=== PATIENT | female | born 1970 | race African-American/Black ===

== ENCOUNTER 2018-02-22 10:46 | Emergency (ER) | payer MEDICAID ==
[~2018-02-22] VITALS: Ht 162.6 cm; Wt 86.0 kg
[2018-02-22 13:43] LABS: BASOPHILS % 0.3 % (0.0-2.0); EOSINOPHILS % 1.1 % (0.0-5.0); HEMATOCRIT. 31.1 % (36.0-48.0); HEMOGLOBIN. 9.5 g/dL (12.0-16.0); LYMPHOCYTES % 9.6 % (20.0-50.0); MEAN CORPUSCULAR HEMOGLOBIN 24.1 pg (28.0-32.0); MEAN CORPUSCULAR VOLUME 78.8 fL (81.0-99.0); MONOCYTES % 9.6 % (2.0-8.0); NEUTROPHILS % 79.4 % (40.0-76.0); PLATELET 485 x1000/uL (130-400); RED BLOOD CELL COUNT 3.95 mill/uL (4.2-5.4); RED CELL DISTRIBUTION WIDTH 19.1 % (11.6-14.6)
[2018-02-22] MEDS ORDERED: IBUPROFEN 800MG TABLET PO ONE (13:45)
[2018-02-22 13:50] LABS: CHLORIDE 106 mEq/L (98-107)
[2018-02-22] MEDS ORDERED: IOHEXOL-350 100 ML BOTTLE ONE (16:39)
[2018-02-22 17:14] VITALS: BP 143/97
== END 2018-02-22 17:22 | disposition home or self-care (01) ==
LOC: ER 13:07
DX: J18.9 Pneumonia, unspecified organism (principal); M94.0 Chondrocostal junction syndrome [Tietze]; D64.9 Anemia, unspecified
CPT/HCPCS: 36415; 71045; 71275; 80053; 83880; 84484; 85025; 85379; 93005; 99285; Q9967; Z7610

== ENCOUNTER 2018-03-08 15:40 | Emergency (ER) | payer MEDICAID ==
[~2018-03-08] VITALS: Ht 162.6 cm; Wt 86.0 kg
[2018-03-08] MEDS ORDERED: HYDROCODONE/ACETAMINOPHEN 5/325MG TABLET PO ONE (18:00)
[2018-03-08] MEDS ORDERED: ONDANSETRON 4MG ODT PO ONE (18:00)
[2018-03-08 18:33] VITALS: BP 120/78
== END 2018-03-08 19:00 | disposition home or self-care (01) ==
LOC: ER 15:40
DX: S22.31XA Fracture of one rib, right side, initial encounter for closed fracture (principal); X58.XXXA Exposure to other specified factors, initial encounter; Y93.9 Activity, unspecified; Y92.9 Unspecified place or not applicable; R03.0 Elevated blood-pressure reading, without diagnosis of hypertension; F12.90 Cannabis use, unspecified, uncomplicated
CPT/HCPCS: 71101; 99284; Q0162

== ENCOUNTER 2020-08-03 11:59 | Emergency (ER) | payer MEDICAID ==
[~2020-08-03] VITALS: Ht 162.6 cm; Wt 83.0 kg
[2020-08-03] MEDS: ACETAMINOPHEN 325MG TABLET PO ONE (13:50)
[2020-08-03 13:51] VITALS: BP 133/98
[2020-08-03] MEDS: IBUPROFEN 400MG TABLET PO ONE (13:51)
[2020-08-03] MEDS ORDERED: IBUP-2028 MT (13:52)
[2020-08-03] MEDS ORDERED: TOPUD MT (13:52)
== END 2020-08-03 14:00 | disposition home or self-care (01) ==
LOC: ER 11:59
DX: M54.9 Dorsalgia, unspecified (principal); R07.81 Pleurodynia; F12.10 Cannabis abuse, uncomplicated; Z88.0 Allergy status to penicillin; Z98.51 Tubal ligation status
CPT/HCPCS: 99283

== ENCOUNTER 2022-03-14 06:46 | Emergency (ER) | payer SELFPAY ==
[~2022-03-14] VITALS: Ht 162.6 cm; Wt 82.0 kg
[~2022-03-14 06:46] MED LIST: IBUP-2028 MT; TOPUD MT
[2022-03-14 06:55] VITALS: BP 152/105
[2022-03-14] MEDS ORDERED: HYDR25SU37 RC (08:43)
== END 2022-03-14 08:51 | disposition home or self-care (01) ==
LOC: ER 06:46
DX: K64.4 Residual hemorrhoidal skin tags (principal); K62.5 Hemorrhage of anus and rectum; I10 Essential (primary) hypertension; Z98.890 Other specified postprocedural states; Z88.0 Allergy status to penicillin; F12.10 Cannabis abuse, uncomplicated
CPT/HCPCS: 99283

== ENCOUNTER 2022-03-31 14:53 | Emergency (ER) | payer SELFPAY ==
[~2022-03-31] VITALS: Ht 167.6 cm; Wt 80.0 kg
[~2022-03-31 14:53] MED LIST changes: +HYDR25SU37 RC
[2022-03-31 14:58] VITALS: BP 187/127
[2022-03-31 16:38] LABS: HEMATOCRIT. 39.1 % (36.0-48.0); HEMOGLOBIN. 12.9 g/dL (12.0-16.0); MEAN CORPUSCULAR HEMOGLOBIN 31.7 pg (28.0-32.0); MEAN CORPUSCULAR VOLUME 96.1 fL (81.0-99.0); MEAN PLATELET VOLUME 7.8 fl (7.4-10.4); PLATELET 241 x1000/uL (130-400); RED BLOOD CELL COUNT 4.07 mill/uL (4.2-5.4); RED CELL DISTRIBUTION WIDTH 15.2 % (11.6-14.6)
[2022-03-31 16:47] LABS: CHLORIDE 107 mEq/L (98-107)
[2022-04-01 00:15] LABS: PLATELET ESTIMATE NORMAL
== END 2022-03-31 21:39 | disposition home or self-care (01) ==
LOC: ER 14:53
DX: R07.89 Other chest pain (principal); R03.0 Elevated blood-pressure reading, without diagnosis of hypertension; I44.4 Left anterior fascicular block; R00.0 Tachycardia, unspecified
CPT/HCPCS: 36415; 71045; 80053; 83880; 84484; 85025; 93005; 99285

== ENCOUNTER 2022-05-11 10:07 | Emergency (ER) | payer OTHER ==
[~2022-05-11] VITALS: Ht 167.6 cm; Wt 82.0 kg
[2022-05-11] MEDS ORDERED: IBUP-2029 PO (11:05)
[2022-05-11 13:20] VITALS: BP 126/75
== END 2022-05-11 13:21 | disposition home or self-care (01) ==
LOC: ER 10:07
DX: M79.645 Pain in left finger(s) (principal); F12.10 Cannabis abuse, uncomplicated; Z88.0 Allergy status to penicillin; Z98.51 Tubal ligation status
CPT/HCPCS: 73140; 99283

== ENCOUNTER 2022-05-16 12:51 | Emergency (ER) | payer OTHER ==
[~2022-05-16] VITALS: Ht 162.6 cm; Wt 79.0 kg
[~2022-05-16 12:51] MED LIST changes: +IBUP-2029 PO
[2022-05-16] MEDS ORDERED: HYDROCODONE/ACETAMINOPHEN 5/325MG TABLET PO ONE (13:45)
[2022-05-16 16:01] LABS: HEMATOCRIT. 40.9 % (36.0-48.0); HEMOGLOBIN. 13.6 g/dL (12.0-16.0); MEAN CORPUSCULAR HEMOGLOBIN 30.6 pg (28.0-32.0); MEAN CORPUSCULAR VOLUME 91.6 fL (81.0-99.0); MEAN PLATELET VOLUME 7.9 fl (7.4-10.4); PLATELET 259 x1000/uL (130-400); RED BLOOD CELL COUNT 4.46 mill/uL (4.2-5.4); RED CELL DISTRIBUTION WIDTH 14.1 % (11.6-14.6)
[2022-05-16 16:12] LABS: CHLORIDE 106 mEq/L (98-107)
[2022-05-16] MEDS ORDERED: T3 PO (17:34)
[2022-05-16 18:00] VITALS: BP 149/106
[2022-05-16 18:56] LABS: PLATELET ESTIMATE NORMAL
== END 2022-05-16 18:00 | disposition home or self-care (01) ==
LOC: ER 12:51
DX: M79.642 Pain in left hand (principal); F12.10 Cannabis abuse, uncomplicated; Z98.51 Tubal ligation status; Z79.899 Other long term (current) drug therapy; Z88.0 Allergy status to penicillin
CPT/HCPCS: 36415; 73130; 80048; 85025; 86038; 86430; 99284

== ENCOUNTER 2022-08-04 14:42 | Emergency (ER) | payer OTHER ==
[~2022-08-04] VITALS: Ht 162.6 cm; Wt 90.0 kg
[~2022-08-04 14:42] MED LIST changes: +T3 PO
[2022-08-04 14:57] VITALS: BP 144/103
[2022-08-04] MEDS ORDERED: ACETAMINOPHEN 325MG TABLET PO ONE (20:15)
== END 2022-08-04 20:50 | disposition home or self-care (01) ==
LOC: ER 14:42
DX: S69.81XA Other specified injuries of right wrist, hand and finger(s), initial encounter (principal); M19.031 Primary osteoarthritis, right wrist; X58.XXXA Exposure to other specified factors, initial encounter; Y93.89 Activity, other specified; Y92.89 Other specified places as the place of occurrence of the external cause
CPT/HCPCS: 29125; 73110; 99283

== ENCOUNTER 2023-10-25 05:48 | Inpatient (IN) | payer OTHER ==
[~2023-10-25] VITALS: Ht 162.6 cm; Wt 68.3 kg
[2023-10-25 05:53] VITALS: O2SAT 98
[2023-10-25] MEDS ORDERED: ONDANSETRON HCL 4MG/2ML INJ IV ONE (06:30)
[2023-10-25] MEDS ORDERED: MORPHINE SULFATE 4 MG/ML INJ (FOR IV/IM USE) IV ONE (06:30)
[2023-10-25] MEDS ORDERED: MAGNESIUM/ALUMINUM HYDROXIDE/SIMETHICONE 30ML UDC PO ONE (06:30)
[2023-10-25 06:40] LABS: BASOPHILS % 0.4 % (0.0-2.0); EOSINOPHILS % 1.8 % (0.0-5.0); HEMATOCRIT. 50.8 % (36.0-48.0); HEMOGLOBIN. 16.9 g/dL (12.0-16.0); LYMPHOCYTES % 16.2 % (20.0-50.0); MEAN CORPUSCULAR HEMOGLOBIN 31.4 pg (28.0-32.0); MEAN CORPUSCULAR HGB CONC 33.3 g/dL (31.0-37.0); MEAN CORPUSCULAR VOLUME 94.3 fL (81.0-99.0); MEAN PLATELET VOLUME 8.2 fl (7.4-10.4); NEUTROPHILS % 72.6 % (40.0-76.0); PLATELET 255 x1000/uL (130-400); RED BLOOD CELL COUNT 5.39 mill/uL (4.2-5.4); RED CELL DISTRIBUTION WIDTH 14.6 % (11.6-14.6); WHITE BLOOD COUNT 7.7 x1000/uL (4.5-11.0)
[2023-10-25 06:49] LABS: CHLORIDE 111 mEq/L (98-107); POTASSIUM 3.8 mEq/L (3.5-5.1); SODIUM 131 mEq/L (136-145)
[2023-10-25 06:50] LABS: CARBON DIOXIDE 13 mEq/L (21-32)
[2023-10-25 06:55] LABS: CREATININE 1.2 mg/dL (0.6-1.0); GLUCOSE 110 mg/dL (70-105)
[2023-10-25 06:56] LABS: TROPONIN I HIGH SENSITIVITY 9 ng/L (3.0-34); UREA NITROGEN BLOOD 23 mg/dL (9-23)
[2023-10-25 06:57] LABS: ALANINE AMINOTRANSFERASE 46 IU/L (10-49); ALBUMIN 4.3 g/dL (3.2-4.8); ASPARTATE AMINOTRANSFERASE 26 IU/L (<34); BILIRUBIN DIRECT 0.1 mg/dL (<=3.0)
[2023-10-25 06:58] LABS: BILIRUBIN TOTAL 0.3 mg/dL (0.1-1.0); PROTEIN TOTAL 7.4 g/dL (6.0-8.3)
[2023-10-25] MEDS: SODIUM CHLORIDE 0.9% 1,000 ML IV ONE (08:18)
[2023-10-25] MEDS: DICYCLOMINE HCL 10MG CAPSULE PO ONE (08:19)
[2023-10-25] MEDS: SODIUM CHLORIDE 0.9% 500 ML IV ONE (08:19)
[2023-10-25] MEDS: MORPHINE SULFATE 4 MG/ML INJ (FOR IV/IM USE) IV NR (08:29)
[2023-10-25] MEDS: ONDANSETRON HCL 4MG/2ML INJ IV NR (08:29)
[2023-10-25] MEDS: MAGNESIUM/ALUMINUM HYDROXIDE/SIMETHICONE 30ML UDC PO NR (08:30)
[2023-10-25 10:09] LABS: CLARITY URINE CLOUDY (CLEAR); COLOR URINE YELLOW (YELLOW); GLUCOSE URINE NEGATIVE (NEGATIVE); KETONES URINE 1+ (NEGATIVE); LEUKOCYTE ESTERASE URINE NEGATIVE (NEGATIVE); NITRITE URINE NEGATIVE (NEGATIVE); OCCULT BLOOD URINE 2+ (NEGATIVE); PH URINE 5.5 (4.5-8.0); PROTEIN URINE 1+ (NEGATIVE); SPECIFIC GRAVITY URINE 1.056 (1.005-1.030); UROBILINOGEN URINE 0.2 E.U./dL (0.2-1.0)
[2023-10-25 10:18] LABS: BACTERIA URINE 4+; HYALINE CASTS URINE 0-5 /lpf; SQUAMOUS EPITHELIAL CELL URINE 3+ /lpf (RARE/1+); YEAST URINE NONE SEEN
[2023-10-25] MEDS ORDERED: NITR100C MT (10:23)
[2023-10-25] MEDS ORDERED: ONDA4TAB50 MT (10:23)
[2023-10-25 10:32] LABS: TROPONIN I HIGH SENSITIVITY < 4 ng/L (3.0-34)
[2023-10-25 11:43] LABS: TROPONIN I HIGH SENSITIVITY 8 ng/L (3.0-34)
[2023-10-25] MEDS ORDERED: CLONIDINE 0.1MG TABLET PO PRN (13:15)
[2023-10-25] MEDS ORDERED: HYDROCODONE/ACETAMINOPHEN 5/325MG TABLET PO PRN (13:15)
[2023-10-25] MEDS ORDERED: NITROGLYCERIN 0.4MG TABLET SL SL PRN (13:15)
[2023-10-25] MEDS ORDERED: IPRATROPIUM/ALBUTEROL 0.5-3(2.5)MG/3ML NEB HHN PRN (13:15)
[2023-10-25] MEDS ORDERED: ONDANSETRON HCL 4MG/2ML INJ IV PRN (13:15)
[2023-10-25] MEDS ORDERED: NA PHOS,M-B/NA PHOS,DI-BA ENEMA 118ML PR PRN (13:15)
[2023-10-25] MEDS ORDERED: MAGNESIUM/ALUMINUM HYDROXIDE/SIMETHICONE 30ML UDC PO PRN (13:15)
[2023-10-25] MEDS ORDERED: DOCUSATE SODIUM 100MG CAPSULE PO PRN (13:15)
[2023-10-25] MEDS ORDERED: GUAIFENESIN 200MG/10ML SUGAR FREE UDC PO PRN (13:15)
[2023-10-25] MEDS ORDERED: ACETAMINOPHEN 325MG TABLET PO PRN (13:15)
[2023-10-25] MEDS ORDERED: NALOXONE HCL 0.4MG/ML VIAL IV PRN (13:15)
[2023-10-25] MEDS ORDERED: IOHEXOL-300 100 ML BOTTLE ONE (13:17)
[2023-10-25 16:38] VITALS: BP 106/71; PULSE 104; RESP 18; TEMP 96.6
[2023-10-25 16:46] LABS: TROPONIN I HIGH SENSITIVITY 8 ng/L (3.0-34)
[2023-10-25 16:47] LABS: CREATINE KINASE 136 IU/L (34-145)
[2023-10-25 18:41] LABS: CLARITY URINE CLEAR (CLEAR); COLOR URINE YELLOW (YELLOW); GLUCOSE URINE NEGATIVE (NEGATIVE); KETONES URINE 1+ (NEGATIVE); LEUKOCYTE ESTERASE URINE NEGATIVE (NEGATIVE); NITRITE URINE NEGATIVE (NEGATIVE); OCCULT BLOOD URINE 2+ (NEGATIVE); PROTEIN URINE 1+ (NEGATIVE); UROBILINOGEN URINE 0.2 E.U./dL (0.2-1.0)
[2023-10-25 18:55] LABS: *AMPHETAMINES SCREEN URINE NEGATIVE (NEGATIVE); *BARBITURATES SCREEN URINE NEGATIVE (NEGATIVE); *BENZODIAZEPINES SCREEN URINE NEGATIVE (NEGATIVE); *COCAINE SCREEN URINE NEGATIVE (NEGATIVE); CANNABINOID URINE SCREEN PRESUMPTIVE POSITIVE (NEGATIVE); ECSTASY MDMA SCREEN URINE NEGATIVE (NEGATIVE); METHADONE URINE SCREEN NEGATIVE (NEGATIVE); OPIATES URINE SCREEN PRESUMPTIVE POSITIVE (NEGATIVE); PHENCYCLIDINE URINE SCREEN NEGATIVE (NEGATIVE)
[2023-10-25 19:11] LABS: BACTERIA URINE TRACE; RBC URINE 0-2 /hpf (0-2); SQUAMOUS EPITHELIAL CELL URINE FEW /lpf (RARE/1+); WBC URINE NONE SEEN /hpf (0-2)
[2023-10-25] MEDS: ENOXAPARIN 40MG/0.4ML SYR SUBCUT SCH (20:58)
[2023-10-25] MEDS: SODIUM CHLORIDE 0.9% 1,000 ML IV SCH (20:58)
[2023-10-25] MEDS: ACETAMINOPHEN 325MG TABLET PO PRN (23:17)
[2023-10-25 23:48] LABS: TROPONIN I HIGH SENSITIVITY 6 ng/L (3.0-34)
[2023-10-25 23:49] LABS: CREATINE KINASE 120 IU/L (34-145)
[2023-10-26] VITALS: BP 108/75; PULSE 103; RESP 18; TEMP 97.3
[2023-10-26 04:00] VITALS: BP 121/89; PULSE 108; RESP 18; TEMP 97.2
[2023-10-26] MEDS: PANTOPRAZOLE 40MG DR TABLET PO SCH (06:02)
[2023-10-26 06:13] LABS: CHLORIDE 108 mEq/L (98-107); POTASSIUM 3.6 mEq/L (3.5-5.1); SODIUM 132 mEq/L (136-145)
[2023-10-26 06:14] LABS: CARBON DIOXIDE 17 mEq/L (21-32)
[2023-10-26 06:15] LABS: CALCIUM 8.9 mg/dL (8.7-10.4)
[2023-10-26 06:19] LABS: CREATININE 0.9 mg/dL (0.6-1.0); GLUCOSE 88 mg/dL (70-105); UREA NITROGEN BLOOD 20 mg/dL (9-23)
[2023-10-26 06:20] LABS: BASOPHILS % 0.4 % (0.0-2.0); EOSINOPHILS % 1.2 % (0.0-5.0); HEMATOCRIT. 49.4 % (36.0-48.0); HEMOGLOBIN. 16.1 g/dL (12.0-16.0); LYMPHOCYTES % 16.9 % (20.0-50.0); MEAN CORPUSCULAR HEMOGLOBIN 30.8 pg (28.0-32.0); MEAN CORPUSCULAR HGB CONC 32.7 g/dL (31.0-37.0); MEAN CORPUSCULAR VOLUME 94.4 fL (81.0-99.0); MONOCYTES % 11.2 % (2.0-8.0); NEUTROPHILS % 70.3 % (40.0-76.0); PLATELET 249 x1000/uL (130-400); RED BLOOD CELL COUNT 5.24 mill/uL (4.2-5.4); RED CELL DISTRIBUTION WIDTH 14.2 % (11.6-14.6); WHITE BLOOD COUNT 6.8 x1000/uL (4.5-11.0)
[2023-10-26 06:23] LABS: T4 FREE 0.99 ng/dL (0.89-1.76); THYROID STIMULATING HORMONE 1.89 uIU/mL (0.55-4.78)
[2023-10-26 08:00] VITALS: BP 107/78; PULSE 66; RESP 16; TEMP 97
[2023-10-26] MEDS: ASPIRIN 81MG TABLET PO SCH (08:14)
[2023-10-26 09:22] LABS: CREATININE URINE RANDOM 81.7 mg/dL
[2023-10-26 12:00] VITALS: BP 113/69; PULSE 63; RESP 16; TEMP 98.5
[2023-10-26 16:00] VITALS: BP 118/84; PULSE 94; TEMP 97.7
[2023-10-26 20:00] VITALS: BP 119/88; PULSE 95; RESP 19; TEMP 97.8
[2023-10-27] VITALS: BP 102/68; PULSE 85; RESP 19; TEMP 97.9
[2023-10-27 04:00] VITALS: BP 108/81; PULSE 86; RESP 18; TEMP 98.3
[2023-10-27 08:00] VITALS: BP 113/77; PULSE 73; RESP 15; TEMP 97.3
[2023-10-27 08:34] LABS: HEMATOCRIT 41.2 % (36.0-48.0); HEMOGLOBIN 13.4 g/dL (12.0-16.0); MEAN CORPUSCULAR HEMOGLOBIN 30.6 pg (28.0-32.0); MEAN CORPUSCULAR HGB CONC 32.4 g/dL (31.0-37.0); MEAN CORPUSCULAR VOLUME 94.3 fL (81.0-99.0); PLATELET 200 x1000/uL (130-400); RED BLOOD CELL COUNT 4.37 mill/uL (4.2-5.4); RED CELL DISTRIBUTION WIDTH 14.4 % (11.6-14.6); WHITE BLOOD COUNT 5.6 x1000/uL (4.5-11.0)
[2023-10-27 08:50] LABS: CARBON DIOXIDE 21 mEq/L (21-32); CHLORIDE 111 mEq/L (98-107); POTASSIUM 3.4 mEq/L (3.5-5.1); SODIUM 136 mEq/L (136-145)
[2023-10-27 08:51] LABS: CALCIUM 8.5 mg/dL (8.7-10.4)
[2023-10-27 08:55] LABS: CREATININE 0.7 mg/dL (0.6-1.0)
[2023-10-27 08:56] LABS: UREA NITROGEN BLOOD 14 mg/dL (9-23)
[2023-10-27 08:58] LABS: PHOSPHORUS 2.3 mg/dL (2.5-4.9)
[2023-10-27 09:04] LABS: GLUCOSE 46 mg/dL (70-105)
[2023-10-27] MEDS: FAMOTIDINE 20MG TABLET PO SCH (09:24)
[2023-10-27] MEDS ORDERED: POTASSIUM PHOSPHATE 20 MMOL in DEXT 5% WATER 243.3333 ML IV NR (11:00)
[2023-10-27 12:00] VITALS: BP 118/79; PULSE 79; RESP 17; TEMP 98.3
[2023-10-27] MEDS: POTASSIUM CHLORIDE 20MEQ TABLET SR PO NR (14:19)
[2023-10-27 16:00] VITALS: BP 131/89; PULSE 84; RESP 17; TEMP 97.6
== END 2023-10-27 15:40 | disposition home or self-care (01) | DRG 249 ==
LOC: ER 05:48 → EDBEDREQ 12:05 → 7EST 15:16
PROVIDERS: ADMIT Preventive Medicine Clinical Informatics; ATTEND Preventive Medicine Clinical Informatics
DX: E86.0 Dehydration (principal); K52.9 Noninfective gastroenteritis and colitis, unspecified; N17.0 Acute kidney failure with tubular necrosis; E87.1 Hypo-osmolality and hyponatremia; R00.0 Tachycardia, unspecified; E87.20 Acidosis, unspecified; F17.200 Nicotine dependence, unspecified, uncomplicated; I25.9 Chronic ischemic heart disease, unspecified; I10 Essential (primary) hypertension; Z88.0 Allergy status to penicillin; Z98.51 Tubal ligation status
CPT/HCPCS: 36415; 71045; 74177; 76705; 80048; 80076; 80305; 81003; 82436; 82550; 82570; 82705; 83605; 83735; 83930; 83935; 84100; 84145; 84300; 84439; 84443; 84484; 85025; 85027; 85379; 87015; 87045; 87177; 87209; 87427; 87449; 89055; 93005; 93306; 93970; 99285; J1650; J2270; J2405; J3490; J7030; J7040; J7060; Q9967

== ENCOUNTER 2023-11-01 15:26 | Inpatient (IN) | payer OTHER ==
[~2023-11-01] VITALS: Ht 162.6 cm; Wt 68.9 kg
[~2023-11-01 15:26] MED LIST changes: +ONDA4TAB50 MT
[2023-11-01 16:43] LABS: CLARITY URINE CLOUDY (CLEAR); COLOR URINE DARK YELLOW (YELLOW); GLUCOSE URINE NEGATIVE (NEGATIVE); KETONES URINE 1+ (NEGATIVE); LEUKOCYTE ESTERASE URINE NEGATIVE (NEGATIVE); NITRITE URINE NEGATIVE (NEGATIVE); OCCULT BLOOD URINE NEGATIVE (NEGATIVE); PH URINE 5.5 (4.5-8.0); PROTEIN URINE 2+ (NEGATIVE); SPECIFIC GRAVITY URINE 1.024 (1.005-1.030)
[2023-11-01 16:53] LABS: *AMPHETAMINES SCREEN URINE NEGATIVE (NEGATIVE)
[2023-11-01 16:54] LABS: *BARBITURATES SCREEN URINE NEGATIVE (NEGATIVE); *COCAINE SCREEN URINE NEGATIVE (NEGATIVE); ECSTASY MDMA SCREEN URINE NEGATIVE (NEGATIVE); METHADONE URINE SCREEN NEGATIVE (NEGATIVE); OPIATES URINE SCREEN NEGATIVE (NEGATIVE); PHENCYCLIDINE URINE SCREEN NEGATIVE (NEGATIVE)
[2023-11-01 16:58] LABS: BACTERIA URINE TRACE; RBC URINE NONE SEEN /hpf (0-2); SQUAMOUS EPITHELIAL CELL URINE FEW /lpf (RARE/1+); WBC URINE 0-2 /hpf (0-2)
[2023-11-01 16:58] LABS: BASOPHILS % 0.2 % (0.0-2.0); EOSINOPHILS % 0.8 % (0.0-5.0); HEMATOCRIT. 53.3 % (36.0-48.0); HEMOGLOBIN. 17.6 g/dL (12.0-16.0); LYMPHOCYTES % 12.5 % (20.0-50.0); MEAN CORPUSCULAR HEMOGLOBIN 31.1 pg (28.0-32.0); MEAN CORPUSCULAR VOLUME 94.1 fL (81.0-99.0); MEAN PLATELET VOLUME 8.8 fl (7.4-10.4); MONOCYTES % 8.6 % (2.0-8.0); NEUTROPHILS % 77.9 % (40.0-76.0); PLATELET 271 x1000/uL (130-400); RED BLOOD CELL COUNT 5.66 mill/uL (4.2-5.4); RED CELL DISTRIBUTION WIDTH 14.6 % (11.6-14.6); WHITE BLOOD COUNT 8.7 x1000/uL (4.5-11.0)
[2023-11-01 16:59] LABS: HYALINE CASTS URINE 20-30 /lpf
[2023-11-01 17:06] LABS: CHLORIDE 101 mEq/L (98-107); POTASSIUM 3.9 mEq/L (3.5-5.1); SODIUM 130 mEq/L (136-145)
[2023-11-01 17:07] LABS: CALCIUM 9.8 mg/dL (8.7-10.4); CARBON DIOXIDE 16 mEq/L (21-32)
[2023-11-01 17:12] LABS: CREATININE 1.2 mg/dL (0.6-1.0); GLUCOSE 96 mg/dL (70-105); TROPONIN I HIGH SENSITIVITY 18 ng/L (3.0-34); UREA NITROGEN BLOOD 16 mg/dL (9-23)
[2023-11-01 21:22] LABS: TROPONIN I HIGH SENSITIVITY 18 ng/L (3.0-34)
[2023-11-01 23:29] LABS: TROPONIN I HIGH SENSITIVITY 17 ng/L (3.0-34)
[2023-11-02] MEDS ORDERED: NALOXONE HCL 0.4MG/ML VIAL IV PRN (02:30)
[2023-11-02] MEDS: HYDROCODONE/ACETAMINOPHEN 10/325MG TABLET PO PRN (02:57)
[2023-11-02] MEDS ORDERED: ACETAMINOPHEN 325MG TABLET PO PRN (10:30)
[2023-11-02 17:30] VITALS: BP 110/92; PULSE 119; RESP 18; TEMP 97.7
[2023-11-02 17:45] VITALS: BP 110/92; PULSE 59; RESP 18; TEMP 97.7
[2023-11-02] MEDS: KETOROLAC 30MG/ML VIAL IV PRN (18:34)
[2023-11-02 20:00] VITALS: BP 104/72; PULSE 96; RESP 18; TEMP 97.3
[2023-11-02 21:56] LABS: BASOPHILS % 0.2 % (0.0-2.0); EOSINOPHILS % 0.5 % (0.0-5.0); HEMATOCRIT. 45.4 % (36.0-48.0); LYMPHOCYTES % 8.6 % (20.0-50.0); MEAN CORPUSCULAR HEMOGLOBIN 31.3 pg (28.0-32.0); MEAN CORPUSCULAR VOLUME 94.8 fL (81.0-99.0); MEAN PLATELET VOLUME 8.5 fl (7.4-10.4); MONOCYTES % 9.9 % (2.0-8.0); NEUTROPHILS % 80.8 % (40.0-76.0); PLATELET 254 x1000/uL (130-400); RED BLOOD CELL COUNT 4.78 mill/uL (4.2-5.4); RED CELL DISTRIBUTION WIDTH 14.2 % (11.6-14.6)
[2023-11-02 22:13] LABS: CHLORIDE 104 mEq/L (98-107); POTASSIUM 3.7 mEq/L (3.5-5.1); SODIUM 132 mEq/L (136-145)
[2023-11-02 22:14] LABS: CARBON DIOXIDE 16 mEq/L (21-32)
[2023-11-02 22:19] LABS: CREATININE 0.9 mg/dL (0.6-1.0); GLUCOSE 80 mg/dL (70-105); UREA NITROGEN BLOOD 21 mg/dL (9-23)
[2023-11-03 00:07] VITALS: BP 104/73; PULSE 113; RESP 16; TEMP 97.5
[2023-11-03] MEDS: ONDANSETRON HCL 4MG/2ML INJ IV PRN (03:03)
[2023-11-03 04:00] VITALS: BP 102/77; PULSE 113; RESP 18; TEMP 97.3
[2023-11-03 08:00] VITALS: BP 101/78; PULSE 84; RESP 18; TEMP 97.6
[2023-11-03 08:29] LABS: HEMATOCRIT 47.5 % (36.0-48.0); HEMOGLOBIN 15.4 g/dL (12.0-16.0); MEAN CORPUSCULAR HEMOGLOBIN 30.4 pg (28.0-32.0); MEAN CORPUSCULAR HGB CONC 32.4 g/dL (31.0-37.0); PLATELET 269 x1000/uL (130-400); RED BLOOD CELL COUNT 5.05 mill/uL (4.2-5.4); RED CELL DISTRIBUTION WIDTH 14.4 % (11.6-14.6); WHITE BLOOD COUNT 8.4 x1000/uL (4.5-11.0)
[2023-11-03 08:36] LABS: CHLORIDE 105 mEq/L (98-107); POTASSIUM 3.9 mEq/L (3.5-5.1); SODIUM 131 mEq/L (136-145)
[2023-11-03 08:37] LABS: CALCIUM 8.9 mg/dL (8.7-10.4); CARBON DIOXIDE 16 mEq/L (21-32)
[2023-11-03 08:42] LABS: CREATININE 0.8 mg/dL (0.6-1.0); GLUCOSE 97 mg/dL (70-105); UREA NITROGEN BLOOD 28 mg/dL (9-23)
[2023-11-03 12:00] VITALS: BP 104/83; PULSE 83; RESP 18; TEMP 97.8
[2023-11-03 16:00] VITALS: BP 111/79; PULSE 85; RESP 18; TEMP 96.3
[2023-11-03] MEDS: SODIUM CHLORIDE 0.9% 1,000 ML IV SCH (16:15)
[2023-11-03] MEDS: SODIUM CHLORIDE 0.9% 500 ML IV ONE (16:17)
[2023-11-03 20:00] VITALS: BP 100/68; PULSE 116; RESP 16; TEMP 97.9
[2023-11-03 20:09] LABS: CLARITY URINE TURBID (CLEAR); COLOR URINE YELLOW (YELLOW); GLUCOSE URINE NEGATIVE (NEGATIVE); KETONES URINE 2+ (NEGATIVE); LEUKOCYTE ESTERASE URINE 2+ (NEGATIVE); NITRITE URINE NEGATIVE (NEGATIVE); OCCULT BLOOD URINE NEGATIVE (NEGATIVE); PH URINE 6.5 (4.5-8.0); PROTEIN URINE 2+ (NEGATIVE); SPECIFIC GRAVITY URINE 1.032 (1.005-1.030); UROBILINOGEN URINE 0.2 E.U./dL (0.2-1.0)
[2023-11-03] MEDS: METOCLOPRAMIDE HCL 10MG/2ML VIAL IV PRN (20:16)
[2023-11-03] MEDS: FAMOTIDINE 20MG TABLET PO SCH (20:16)
[2023-11-03 20:35] LABS: BACTERIA URINE 3+
[2023-11-03 20:37] LABS: AMORPHOUS SEDIMENT URINE 2+ /lpf; RBC URINE 0-2 /hpf (0-2); SQUAMOUS EPITHELIAL CELL URINE FEW /lpf (RARE/1+)
[2023-11-03 20:38] LABS: FINE GRANULAR CASTS URINE 0-5 /lpf
[2023-11-04] VITALS: BP 98/69; PULSE 103; RESP 16; TEMP 97.8
[2023-11-04 04:00] VITALS: BP 115/82; PULSE 99; RESP 18; TEMP 97.5
[2023-11-04 08:00] VITALS: BP 92/63; PULSE 103; RESP 18; TEMP 97
[2023-11-04 12:00] VITALS: BP 114/83; PULSE 110; RESP 20; TEMP 97.5
[2023-11-04 16:00] VITALS: BP 97/65; PULSE 106; RESP 18; TEMP 97.4
[2023-11-04] MEDS ORDERED: ONDA4TAB11 PO (17:09)
[2023-11-04 18:10] VITALS: BP 97/65; PULSE 106; TEMP 97.4; O2SAT 100
== END 2023-11-04 20:07 | disposition home or self-care (01) | DRG 249 ==
LOC: ER 15:29 → MICUSO 23:23 → 5WST 11-02 12:18 → 7WST 11-02 18:27
PROVIDERS: ADMIT Internal Medicine; ATTEND Internal Medicine
DX: K52.9 Noninfective gastroenteritis and colitis, unspecified (principal); N17.0 Acute kidney failure with tubular necrosis; E87.1 Hypo-osmolality and hyponatremia; R30.0 Dysuria; F12.20 Cannabis dependence, uncomplicated; I10 Essential (primary) hypertension; Z82.49 Family history of ischemic heart disease and other diseases of the circulatory system; Z88.0 Allergy status to penicillin; Z98.51 Tubal ligation status
CPT/HCPCS: 36415; 71045; 74176; 80048; 80305; 81003; 83880; 84145; 84484; 85025; 85027; 87015; 87045; 87177; 87209; 87427; 87449; 87493; 89055; 93005; 99285; J1885; J2405; J2765; J7030

== ENCOUNTER 2023-11-06 18:26 | Inpatient (IN) | payer OTHER ==
[~2023-11-06] VITALS: Ht 162.6 cm; Wt 71.7 kg
[~2023-11-06 18:26] MED LIST changes: +ONDA4TAB11 PO
[2023-11-06] MEDS: MAGNESIUM/ALUMINUM HYDROXIDE/SIMETHICONE 30ML UDC PO STA (20:17)
[2023-11-06] MEDS: ONDANSETRON HCL 4MG/2ML INJ IV STA (20:17)
[2023-11-06] MEDS: SODIUM CHLORIDE 0.9% 1,000 ML IV ONE (20:18)
[2023-11-06 20:29] LABS: BASOPHILS % 0.2 % (0.0-2.0); EOSINOPHILS % 0.3 % (0.0-5.0); HEMATOCRIT. 45.2 % (36.0-48.0); HEMOGLOBIN. 15.1 g/dL (12.0-16.0); MEAN CORPUSCULAR HEMOGLOBIN 31.5 pg (28.0-32.0); MEAN CORPUSCULAR HGB CONC 33.3 g/dL (31.0-37.0); MEAN CORPUSCULAR VOLUME 94.6 fL (81.0-99.0); MEAN PLATELET VOLUME 8.3 fl (7.4-10.4); MONOCYTES % 7.4 % (2.0-8.0); NEUTROPHILS % 84.1 % (40.0-76.0); PLATELET 290 x1000/uL (130-400); RED BLOOD CELL COUNT 4.78 mill/uL (4.2-5.4); RED CELL DISTRIBUTION WIDTH 14.6 % (11.6-14.6); WHITE BLOOD COUNT 7.2 x1000/uL (4.5-11.0)
[2023-11-06 20:35] LABS: CHLORIDE 106 mEq/L (98-107); POTASSIUM 3.8 mEq/L (3.5-5.1); SODIUM 132 mEq/L (136-145)
[2023-11-06 20:37] LABS: CALCIUM 9.2 mg/dL (8.7-10.4); CARBON DIOXIDE 16 mEq/L (21-32)
[2023-11-06 20:42] LABS: CREATININE 1.1 mg/dL (0.6-1.0); GLUCOSE 106 mg/dL (70-105); UREA NITROGEN BLOOD 20 mg/dL (9-23)
[2023-11-06 20:44] LABS: ALANINE AMINOTRANSFERASE 41 IU/L (10-49); ALBUMIN 3.5 g/dL (3.2-4.8); ASPARTATE AMINOTRANSFERASE 22 IU/L (<34); BILIRUBIN TOTAL 0.2 mg/dL (0.1-1.0); PROTEIN TOTAL 5.9 g/dL (6.0-8.3)
[2023-11-06 20:46] LABS: BILIRUBIN DIRECT < 0.1 mg/dL (<=3.0)
[2023-11-06] MEDS ORDERED: ACETAMINOPHEN 325MG TABLET PO PRN (22:00)
[2023-11-06] MEDS ORDERED: GUAIFENESIN 200MG/10ML SUGAR FREE UDC PO PRN (22:00)
[2023-11-06] MEDS ORDERED: ONDANSETRON HCL 4MG/2ML INJ IV PRN (22:00)
[2023-11-06] MEDS ORDERED: IPRATROPIUM/ALBUTEROL 0.5-3(2.5)MG/3ML NEB HHN PRN (22:00)
[2023-11-06] MEDS ORDERED: MORPHINE SULFATE 4 MG/ML INJ (FOR IV/IM USE) IV ONE (22:00)
[2023-11-06] MEDS ORDERED: LEVOFLOXACIN 750MG PREMIX 150 ML IV SCH (23:00)
[2023-11-06] MEDS ORDERED: HYDRALAZINE 20MG/ML VIAL IV PRN (23:00)
[2023-11-07] VITALS (29 sets, daily range): BP systolic 92–114; BP diastolic 42–77; PULSE 74–119; RESP 16–30; TEMP 96.8–98.5
[2023-11-07] MEDS: MORPHINE SULFATE 4 MG/ML INJ (FOR IV/IM USE) IV NR (00:10)
[2023-11-07] MEDS: DEXT 5%/0.9% NACL 1,000 ML IV SCH (00:21)
[2023-11-07 00:52] LABS: PHOSPHORUS 3.2 mg/dL (2.5-4.9); TROPONIN I HIGH SENSITIVITY 18 ng/L (3.0-34)
[2023-11-07 00:53] LABS: CREATINE KINASE 40 IU/L (34-145)
[2023-11-07] MEDS: ENOXAPARIN 40MG/0.4ML SYR SUBCUT SCH (04:03)
[2023-11-07] MEDS: VANCOMYCIN 1.5GM/250ML IV NR (04:04)
[2023-11-07] MEDS ORDERED: NALOXONE HCL 0.4MG/ML VIAL IV PRN ×2 (04:30→09:30)
[2023-11-07] MEDS ORDERED: MORPHINE SULFATE 2 MG/ML INJ (NOT FOR IM USE) IV PRN (04:30)
[2023-11-07] MEDS ORDERED: LIDOCAINE HCL/PF 1% 10 MG/ML 5ML VIAL ONE (07:18)
[2023-11-07] MEDS ORDERED: FENTANYL CITRATE/PF 50MCG/ML 2ML VIAL ONE ×2 (07:19→08:45)
[2023-11-07] MEDS ORDERED: ROCURONIUM BROMIDE 10MG/ML VIAL 5ML IV ONE (07:19)
[2023-11-07] MEDS ORDERED: PROPOFOL 200MG/20ML VIAL IV ONE (07:19)
[2023-11-07] MEDS ORDERED: MIDAZOLAM HCL 2 MG/2 ML VIAL ONE (07:20)
[2023-11-07 07:21] LABS: POTASSIUM 4.1 mEq/L (3.5-5.1)
[2023-11-07 07:22] LABS: CALCIUM 8.5 mg/dL (8.7-10.4)
[2023-11-07 07:44] LABS: CREATININE 1.9 mg/dL (0.6-1.0)
[2023-11-07 07:46] LABS: T4 FREE 1.28 ng/dL (0.89-1.76); THYROID STIMULATING HORMONE 0.58 uIU/mL (0.55-4.78)
[2023-11-07] MEDS ORDERED: ALBUMIN HUMAN 12.5GM/50ML (25%) IV ONE (07:52)
[2023-11-07] MEDS ORDERED: EPINEPHRINE 0.1MG/ML (1:10,000) 10ML SYR ONE (08:18)
[2023-11-07] MEDS ORDERED: ACETAMINOPHEN 1000MG/100ML IV NR (08:30)
[2023-11-07] MEDS ORDERED: ONDANSETRON HCL 4MG/2ML INJ IV PRN ×2 (08:30→09:30)
[2023-11-07] MEDS ORDERED: HYDROMORPHONE HCL/PF 2MG/ML INJ IV PRN (08:30)
[2023-11-07] MEDS ORDERED: SUGAMMADEX SODIUM 200 MG/2 ML VIAL IV NR (08:30)
[2023-11-07] MEDS ORDERED: SODIUM CHLORIDE 0.9% 1,000 ML IV ONE (09:00)
[2023-11-07] MEDS ORDERED: LEVOFLOXACIN 500MG PREMIX 100 ML IV NR (09:00)
[2023-11-07] MEDS ORDERED: FENTANYL CITRATE/PF 50MCG/ML 2ML VIAL IV PRN (09:00)
[2023-11-07] MEDS ORDERED: NALOXONE HCL 0.4MG/ML 1ML VIAL ONE (09:11)
[2023-11-07] MEDS ORDERED: FLUMAZENIL 0.1 MG/ML 5ML VIAL IV ONE (09:23)
[2023-11-07] MEDS ORDERED: DEXT 5%/0.45% NACL KCL 20MEQ/L 1,000 ML IV SCH (09:30)
[2023-11-07] MEDS ORDERED: LEVOFLOXACIN 500MG PREMIX 100 ML IV SCH (09:30)
[2023-11-07] MEDS: IPRATROPIUM/ALBUTEROL 0.5-3(2.5)MG/3ML NEB HHN NR (09:52)
[2023-11-07] MEDS: PHENYLEPHRINE 50MG/250ML PMX 250 ML IV PRN (10:00)
[2023-11-07] MEDS ORDERED: PHENYLEPHRINE 50MG/250ML PMX 250 ML IV PRN (10:00)
[2023-11-07] MEDS: FAMOTIDINE 20MG/2ML VIAL IV SCH (10:00)
[2023-11-07 10:01] LABS: BG BASE EXCESS -17.2 mmol/L (-2.0-2.0); BG DEOXYHEMOGLOBIN 1.7 % (0.0-5.0); BG FRACTION INSPIRED OXYGEN 100; BG HCO3 ACT 10.5 mmol/L (22.0-26.0); BG METHEMOGLOBIN 0.3 % (0.0-1.5); BG OXYGEN SATURATION 98.3 % (92.0-98.5); BG PCO2 31.5 mmHg (35.0-45.0); BG PH 7.142 (7.350-7.450); BG PO2 132.5 mmHg (75.0-100.0); BG SAMPLE SITE RIGHT BRACHIAL; BG TOTAL HEMOGLOBIN 11.8 g/dL (12.0-18.0); BG VENT MODE MASK - NRB
[2023-11-07] MEDS: SODIUM BICARBONATE 8.4% 50MEQ/50ML SYR IV NR (10:05)
[2023-11-07] MEDS ORDERED: NOREPINEPHRINE 8MG/250ML PMX 250 ML IV PRN ×2 (10:15→10:30)
[2023-11-07] MEDS: LACTATED RINGERS 1,000 ML IV ONE (10:36)
[2023-11-07] MEDS: LEVOFLOXACIN 500MG PREMIX 100 ML IV NR (15:00)
[2023-11-07] MEDS ORDERED: VANCOMYCIN 750MG/150ML (BAXTER) IV SCH (16:00)
[2023-11-07 16:16] LABS: HEMATOCRIT. 37.3 % (36.0-48.0); HEMOGLOBIN. 12.5 g/dL (12.0-16.0); MEAN CORPUSCULAR HEMOGLOBIN 31.4 pg (28.0-32.0); MEAN CORPUSCULAR HGB CONC 33.5 g/dL (31.0-37.0); MEAN CORPUSCULAR VOLUME 93.6 fL (81.0-99.0); PLATELET 256 x1000/uL (130-400); RED BLOOD CELL COUNT 3.99 mill/uL (4.2-5.4); RED CELL DISTRIBUTION WIDTH 14.5 % (11.6-14.6); WHITE BLOOD COUNT 10.2 x1000/uL (4.5-11.0)
[2023-11-07 16:21] LABS: DIFFERENTIAL COMMENT 1
[2023-11-07 16:44] LABS: PLATELET ESTIMATE NORMAL
[2023-11-07] MEDS: MORPHINE SULFATE 2 MG/ML INJ (NOT FOR IM USE) IV PRN (17:02)
[2023-11-07] MEDS ORDERED: FAMOTIDINE 20MG TABLET PO SCH (21:00)
[2023-11-07] MEDS: DEXT 5%/0.45% NACL KCL 20MEQ/L 1,000 ML IV SCH (21:01)
[2023-11-08] VITALS (91 sets, daily range): BP systolic 87–124; BP diastolic 57–92; PULSE 70–101; RESP 14–45; TEMP 96.8–98.5
[2023-11-08 05:38] LABS: HEMATOCRIT 35.9 % (36.0-48.0); HEMOGLOBIN 11.9 g/dL (12.0-16.0); MEAN CORPUSCULAR HEMOGLOBIN 31.2 pg (28.0-32.0); MEAN CORPUSCULAR HGB CONC 33.2 g/dL (31.0-37.0); MEAN CORPUSCULAR VOLUME 93.8 fL (81.0-99.0); PLATELET 271 x1000/uL (130-400); POTASSIUM 3.7 mEq/L (3.5-5.1); RED BLOOD CELL COUNT 3.82 mill/uL (4.2-5.4); RED CELL DISTRIBUTION WIDTH 14.6 % (11.6-14.6); WHITE BLOOD COUNT 17.7 x1000/uL (4.5-11.0)
[2023-11-08 05:40] LABS: CALCIUM 8.1 mg/dL (8.7-10.4)
[2023-11-08 05:46] LABS: CREATININE 2.9 mg/dL (0.6-1.0)
[2023-11-08] MEDS: LEVOFLOXACIN 250MG PREMIX 50 ML IV SCH (09:07)
[2023-11-08] MEDS: SODIUM CHLORIDE 0.9% 500 ML IV ONE (17:07)
[2023-11-08] MEDS: DEXT 5%/LACTATED RINGERS 1,000 ML IV SCH (17:08)
[2023-11-08] MEDS: CLINDAMYCIN 600MG PREMIX 50 ML IV SCH (19:40)
[2023-11-08] MEDS: MICAFUNGIN 100 MG in SODIUM CHLORIDE 0.9% 100 ML IV SCH (19:40)
[2023-11-08] MEDS ORDERED: CLINDAMYCIN 300 MG in DEXTROSE 5% WATER 50 ML IV SCH (20:00)
[2023-11-09] VITALS (90 sets, daily range): BP systolic 87–118; BP diastolic 45–91; PULSE 72–115; RESP 15–36; TEMP 97–98.1
[2023-11-09 05:34] LABS: HEMATOCRIT 30.1 % (36.0-48.0); HEMOGLOBIN 9.9 g/dL (12.0-16.0); MEAN CORPUSCULAR HEMOGLOBIN 30.9 pg (28.0-32.0); MEAN CORPUSCULAR VOLUME 93.8 fL (81.0-99.0); PLATELET 229 x1000/uL (130-400); RED BLOOD CELL COUNT 3.21 mill/uL (4.2-5.4); RED CELL DISTRIBUTION WIDTH 14.7 % (11.6-14.6); WHITE BLOOD COUNT 18.5 x1000/uL (4.5-11.0)
[2023-11-09 05:37] LABS: POTASSIUM 3.9 mEq/L (3.5-5.1)
[2023-11-09 05:38] LABS: CALCIUM 8.4 mg/dL (8.7-10.4)
[2023-11-09 05:43] LABS: CREATININE 2.9 mg/dL (0.6-1.0)
[2023-11-09] MEDS: AZTREONAM 1 G in DEXTROSE 5% WATER 50 ML IV SCH (15:47)
[2023-11-10] VITALS (36 sets, daily range): BP systolic 95–140; BP diastolic 70–92; PULSE 80–98; RESP 14–31; TEMP 97.6–98.6
[2023-11-10] MEDS: MORPHINE SULFATE 4 MG/ML INJ (FOR IV/IM USE) IV PRN (00:07)
[2023-11-10 06:17] LABS: MEAN CORPUSCULAR HEMOGLOBIN 31.2 pg (28.0-32.0); MEAN CORPUSCULAR HGB CONC 33.2 g/dL (31.0-37.0); MEAN CORPUSCULAR VOLUME 93.9 fL (81.0-99.0); MEAN PLATELET VOLUME 8.3 fl (7.4-10.4); PLATELET 235 x1000/uL (130-400); RED BLOOD CELL COUNT 3.21 mill/uL (4.2-5.4); RED CELL DISTRIBUTION WIDTH 14.7 % (11.6-14.6); WHITE BLOOD COUNT 17.2 x1000/uL (4.5-11.0)
[2023-11-10 06:27] LABS: CALCIUM 8.9 mg/dL (8.7-10.4); POTASSIUM 4.2 mEq/L (3.5-5.1)
[2023-11-10 06:33] LABS: CREATININE 2.5 mg/dL (0.6-1.0)
[2023-11-10 08:42] LABS: DIFFERENTIAL COMMENT 1; HEMATOCRIT. 30.1 % (36.0-48.0)
[2023-11-10] MEDS: HYDROCODONE/ACETAMINOPHEN 5/325MG TABLET PO PRN (10:16)
[2023-11-10 11:02] LABS: CREATINE KINASE 380 IU/L (34-145)
[2023-11-10 11:31] LABS: PLATELET ESTIMATE NORMAL
[2023-11-10] MEDS: ENOXAPARIN 30MG/0.3ML SYR SUBCUT SCH (11:57)
[2023-11-11] VITALS: BP 93/64; PULSE 102; RESP 19; TEMP 97.2
[2023-11-11 04:00] VITALS: BP 107/69; PULSE 101; RESP 17; TEMP 97.6
[2023-11-11 08:00] VITALS: BP 120/86; PULSE 88; RESP 20; TEMP 98.4
[2023-11-11] MEDS: DOCUSATE SODIUM 100MG CAPSULE PO PRN (09:00)
[2023-11-11 11:17] LABS: POTASSIUM 4.6 mEq/L (3.5-5.1)
[2023-11-11 11:19] LABS: DIFFERENTIAL COMMENT 1; HEMATOCRIT. 35.8 % (36.0-48.0); HEMOGLOBIN. 11.1 g/dL (12.0-16.0); MEAN CORPUSCULAR HEMOGLOBIN 30.3 pg (28.0-32.0); MEAN CORPUSCULAR HGB CONC 31.1 g/dL (31.0-37.0); MEAN CORPUSCULAR VOLUME 97.3 fL (81.0-99.0); MEAN PLATELET VOLUME 8.3 fl (7.4-10.4); PLATELET 242 x1000/uL (130-400); RED BLOOD CELL COUNT 3.68 mill/uL (4.2-5.4); RED CELL DISTRIBUTION WIDTH 16.2 % (11.6-14.6); WHITE BLOOD COUNT 11.2 x1000/uL (4.5-11.0)
[2023-11-11 11:23] LABS: CREATININE 2.3 mg/dL (0.6-1.0)
[2023-11-11 12:00] VITALS: BP 129/63; PULSE 98; RESP 16; TEMP 98.9
[2023-11-11 15:18] LABS: PLATELET ESTIMATE NORMAL
[2023-11-11 16:00] VITALS: BP 135/85; PULSE 93; RESP 22; TEMP 98.1
[2023-11-11 20:00] VITALS: BP 112/72; PULSE 96; RESP 17; TEMP 97.9
[2023-11-12] VITALS: BP 109/88; PULSE 98; RESP 16; TEMP 97.5
[2023-11-12 04:00] VITALS: BP 140/99; PULSE 106; RESP 18; TEMP 97.7
[2023-11-12 07:42] LABS: HEMOGLOBIN. 10.6 g/dL (12.0-16.0); MEAN CORPUSCULAR HEMOGLOBIN 30.5 pg (28.0-32.0); MEAN CORPUSCULAR HGB CONC 33.2 g/dL (31.0-37.0); MEAN CORPUSCULAR VOLUME 91.8 fL (81.0-99.0); MEAN PLATELET VOLUME 8.4 fl (7.4-10.4); PLATELET 266 x1000/uL (130-400); RED BLOOD CELL COUNT 3.49 mill/uL (4.2-5.4); WHITE BLOOD COUNT 12.5 x1000/uL (4.5-11.0)
[2023-11-12 07:49] LABS: CARBON DIOXIDE 17 mEq/L (21-32); CHLORIDE 119 mEq/L (98-107); POTASSIUM 3.8 mEq/L (3.5-5.1); SODIUM 145 mEq/L (136-145)
[2023-11-12 07:50] LABS: CALCIUM 8.8 mg/dL (8.7-10.4)
[2023-11-12 07:55] LABS: CREATININE 1.7 mg/dL (0.6-1.0); GLUCOSE 85 mg/dL (70-105); UREA NITROGEN BLOOD 38 mg/dL (9-23)
[2023-11-12 07:58] LABS: PHOSPHORUS 4.1 mg/dL (2.5-4.9)
[2023-11-12 08:00] VITALS: BP 143/105; PULSE 91; RESP 18; TEMP 98.1
[2023-11-12 08:04] LABS: DIFFERENTIAL COMMENT 1
[2023-11-12 11:49] LABS: NUCLEATED RED BLOOD CELLS 1 /100 WBC
[2023-11-12 11:50] LABS: PLATELET ESTIMATE NORMAL
[2023-11-12 12:00] VITALS: BP 139/99; PULSE 105; RESP 16; TEMP 97.8
[2023-11-12] MEDS: SODIUM BICARBONATE 650MG TABLET PO SCH (13:11)
[2023-11-12] MEDS ORDERED: NALOXONE HCL 0.4MG/ML VIAL IV PRN (13:15)
[2023-11-12] MEDS: MORPHINE SULFATE 2 MG/ML INJ (NOT FOR IM USE) IV PRN (13:15)
[2023-11-12 16:00] VITALS: BP 136/69; PULSE 107; RESP 22; TEMP 97.9
[2023-11-12 20:00] VITALS: BP 141/83; PULSE 97; RESP 18; TEMP 97.4
[2023-11-13] VITALS (7 sets, daily range): BP systolic 126–140; BP diastolic 91–98; PULSE 96–113; RESP 17–20; TEMP 97.5–98.8
[2023-11-13 06:43] LABS: POTASSIUM 3.8 mEq/L (3.5-5.1)
[2023-11-13 06:44] LABS: CALCIUM 8.4 mg/dL (8.7-10.4)
[2023-11-13 06:49] LABS: CREATININE 1.3 mg/dL (0.6-1.0)
[2023-11-13 06:53] LABS: HEMATOCRIT. 30.3 % (36.0-48.0); HEMOGLOBIN. 10.4 g/dL (12.0-16.0); MEAN CORPUSCULAR HEMOGLOBIN 31.4 pg (28.0-32.0); MEAN CORPUSCULAR HGB CONC 34.3 g/dL (31.0-37.0); MEAN CORPUSCULAR VOLUME 91.5 fL (81.0-99.0); MEAN PLATELET VOLUME 8.4 fl (7.4-10.4); PLATELET 267 x1000/uL (130-400); RED BLOOD CELL COUNT 3.31 mill/uL (4.2-5.4); RED CELL DISTRIBUTION WIDTH 14.8 % (11.6-14.6); WHITE BLOOD COUNT 11.1 x1000/uL (4.5-11.0)
[2023-11-13 07:53] LABS: DIFFERENTIAL COMMENT 1
[2023-11-13] MEDS: ENOXAPARIN 40MG/0.4ML SYR SUBCUT SCH (08:55)
[2023-11-13 16:54] LABS: PLATELET ESTIMATE NORMAL
[2023-11-14] VITALS: BP 131/86; PULSE 95; RESP 18; TEMP 98
[2023-11-14 04:00] VITALS: BP 138/85; PULSE 90; RESP 18; TEMP 97.9
[2023-11-14 08:00] VITALS: BP 131/96; PULSE 99; RESP 16; TEMP 97.6
[2023-11-14 12:00] VITALS: BP 137/100; PULSE 114; RESP 20; TEMP 98.4
[2023-11-14] MEDS: METRONIDAZOLE 500MG TABLET PO SCH (14:59)
[2023-11-14 16:00] VITALS: BP 142/99; PULSE 96; RESP 18; TEMP 98.2
[2023-11-14 20:00] VITALS: BP 139/89; PULSE 92; RESP 20; TEMP 97.7
[2023-11-15] VITALS: BP 128/80; PULSE 96; RESP 18; TEMP 97.8
[2023-11-15 04:00] VITALS: BP 132/88; PULSE 92; RESP 18; TEMP 97.8
[2023-11-15 06:57] LABS: HEMATOCRIT. 29.3 % (36.0-48.0); HEMOGLOBIN. 9.5 g/dL (12.0-16.0); MEAN CORPUSCULAR HEMOGLOBIN 29.5 pg (28.0-32.0); MEAN CORPUSCULAR HGB CONC 32.3 g/dL (31.0-37.0); MEAN CORPUSCULAR VOLUME 91.6 fL (81.0-99.0); MEAN PLATELET VOLUME 8.5 fl (7.4-10.4); PLATELET 321 x1000/uL (130-400); RED CELL DISTRIBUTION WIDTH 14.8 % (11.6-14.6)
[2023-11-15 07:15] LABS: CARBON DIOXIDE 20 mEq/L (21-32); CHLORIDE 116 mEq/L (98-107); POTASSIUM 3.6 mEq/L (3.5-5.1); SODIUM 144 mEq/L (136-145)
[2023-11-15 07:16] LABS: CALCIUM 8.2 mg/dL (8.7-10.4)
[2023-11-15 07:21] LABS: CREATININE 0.6 mg/dL (0.6-1.0); UREA NITROGEN BLOOD 14 mg/dL (9-23)
[2023-11-15 07:23] LABS: DIFFERENTIAL COMMENT 1
[2023-11-15 08:00] VITALS: BP 144/96; PULSE 100; RESP 20; TEMP 97.9
[2023-11-15 08:08] LABS: GLUCOSE 42 mg/dL (70-105)
[2023-11-15 10:23] LABS: PLATELET ESTIMATE NORMAL
[2023-11-15 12:00] VITALS: BP 146/95; PULSE 93; RESP 20; TEMP 97.8
[2023-11-15 16:00] VITALS: BP 143/92; PULSE 99; RESP 19; TEMP 98.6
[2023-11-15] MEDS: DEXT 10% WATER 1,000 ML IV SCH (17:17)
[2023-11-15] MEDS: ACETAMINOPHEN 325MG TABLET PO PRN (17:30)
[2023-11-15 20:00] VITALS: BP 124/96; PULSE 100; RESP 18; TEMP 97.9
[2023-11-15] MEDS: BLOOD SUGAR DIAGNOSTIC STRIP TEST SCH (21:00)
[2023-11-15] MEDS: DEXTROSE 50% WATER 50ML SYRINGE IV PRN (23:13)
[2023-11-16] VITALS: BP 140/89; PULSE 91; RESP 18; TEMP 98.1
[2023-11-16 04:00] VITALS: BP 141/102; PULSE 96; RESP 18; TEMP 98.1
[2023-11-16 05:24] LABS: HEMATOCRIT. 29.6 % (36.0-48.0); HEMOGLOBIN. 9.7 g/dL (12.0-16.0); MEAN CORPUSCULAR HEMOGLOBIN 29.6 pg (28.0-32.0); MEAN CORPUSCULAR HGB CONC 32.7 g/dL (31.0-37.0); MEAN CORPUSCULAR VOLUME 90.6 fL (81.0-99.0); MEAN PLATELET VOLUME 8.2 fl (7.4-10.4); PLATELET 363 x1000/uL (130-400); RED BLOOD CELL COUNT 3.27 mill/uL (4.2-5.4); RED CELL DISTRIBUTION WIDTH 14.8 % (11.6-14.6); WHITE BLOOD COUNT 16.5 x1000/uL (4.5-11.0)
[2023-11-16 05:33] LABS: CHLORIDE 115 mEq/L (98-107); SODIUM 144 mEq/L (136-145)
[2023-11-16 05:34] LABS: CALCIUM 8.4 mg/dL (8.7-10.4); CARBON DIOXIDE 22 mEq/L (21-32)
[2023-11-16 05:39] LABS: CREATININE 0.5 mg/dL (0.6-1.0); GLUCOSE 78 mg/dL (70-105); UREA NITROGEN BLOOD 11 mg/dL (9-23)
[2023-11-16 06:46] LABS: DIFFERENTIAL COMMENT 1
[2023-11-16 08:00] VITALS: BP 137/89; PULSE 92; RESP 19; TEMP 98.1
[2023-11-16] MEDS: KCL 20MEQ/100ML PREMIX 100 ML IV SCH (09:35)
[2023-11-16 12:00] VITALS: BP 152/103; PULSE 92; RESP 20; TEMP 97.6
[2023-11-16] MEDS: DEXT 10% WATER 1,000 ML IV SCH (12:35)
[2023-11-16] MEDS: POTASSIUM CHLORIDE 20MEQ TABLET SR PO NR (13:02)
[2023-11-16 14:15] LABS: ANISOCYTOSIS 1+; PLATELET ESTIMATE NORMAL
[2023-11-16] MEDS: FLUCONAZOLE 100MG TABLET PO SCH (15:30)
[2023-11-16 16:00] VITALS: BP 149/102; PULSE 99; RESP 20; TEMP 97.5
[2023-11-16 20:00] VITALS: BP 141/89; PULSE 90; RESP 18; TEMP 97.7
[2023-11-16] MEDS: MAGNESIUM/ALUMINUM HYDROXIDE/SIMETHICONE 30ML UDC PO PRN (22:26)
[2023-11-17] VITALS: BP 128/97; PULSE 98; RESP 20; TEMP 97.9
[2023-11-17] MEDS: VANCOMYCIN 250MG/5ML ORAL SYRINGE PO SCH (00:18)
[2023-11-17 04:00] VITALS: BP 135/87; PULSE 99; RESP 18; TEMP 97.5
[2023-11-17 07:15] LABS: CHLORIDE 116 mEq/L (98-107); POTASSIUM 3.4 mEq/L (3.5-5.1); SODIUM 143 mEq/L (136-145)
[2023-11-17 07:16] LABS: CARBON DIOXIDE 19 mEq/L (21-32)
[2023-11-17 07:17] LABS: CALCIUM 8.3 mg/dL (8.7-10.4)
[2023-11-17 07:21] LABS: CREATININE 0.6 mg/dL (0.6-1.0); GLUCOSE 108 mg/dL (70-105); UREA NITROGEN BLOOD 7 mg/dL (9-23)
[2023-11-17 07:24] LABS: PHOSPHORUS 3.6 mg/dL (2.5-4.9)
[2023-11-17 07:35] LABS: HEMATOCRIT. 29.5 % (36.0-48.0); HEMOGLOBIN. 9.7 g/dL (12.0-16.0); MEAN CORPUSCULAR HEMOGLOBIN 29.5 pg (28.0-32.0); MEAN CORPUSCULAR HGB CONC 32.7 g/dL (31.0-37.0); MEAN CORPUSCULAR VOLUME 90.1 fL (81.0-99.0); MEAN PLATELET VOLUME 8.7 fl (7.4-10.4); PLATELET 424 x1000/uL (130-400); RED BLOOD CELL COUNT 3.28 mill/uL (4.2-5.4); RED CELL DISTRIBUTION WIDTH 15.1 % (11.6-14.6); WHITE BLOOD COUNT 14.4 x1000/uL (4.5-11.0)
[2023-11-17 07:43] LABS: DIFFERENTIAL COMMENT 1
[2023-11-17 08:00] VITALS: BP 157/107; PULSE 87; RESP 20; TEMP 97.5
[2023-11-17] MEDS ORDERED: ONDANSETRON HCL 4MG/2ML INJ IV PRN (09:45)
[2023-11-17] MEDS ORDERED: MAGNESIUM 2 G PREMIX 50 ML IV ONE (11:15)
[2023-11-17] MEDS: POTASSIUM CHLORIDE 20MEQ TABLET SR PO NR (11:15)
[2023-11-17 12:00] VITALS: BP 153/112; PULSE 91; RESP 20; TEMP 98.1
[2023-11-17] MEDS: PANTOPRAZOLE SODIUM 40 MG/VIAL IV SCH (12:49)
[2023-11-17] MEDS: POTASSIUM CHLORIDE 20MEQ/PACKET PO NR (12:50)
[2023-11-17] MEDS: MAGNESIUM 2 G PREMIX 50 ML IV SCH (12:51)
[2023-11-17 18:30] LABS: ANISOCYTOSIS 1+; PLATELET ESTIMATE INCREASED
[2023-11-17 20:00] VITALS: BP 133/86; PULSE 105; RESP 19; TEMP 97.3
[2023-11-18] VITALS: BP 142/80; PULSE 100; RESP 19; TEMP 97.4
[2023-11-18 02:21] LABS: CREATINE KINASE MB FRACTION 5.7 ng/mL (0.5-3.6); TROPONIN I HIGH SENSITIVITY 26 ng/L (3.0-34)
[2023-11-18 04:00] VITALS: BP 139/91; PULSE 104; RESP 19; TEMP 96.8
[2023-11-18 06:41] LABS: TROPONIN I HIGH SENSITIVITY 30 ng/L (3.0-34)
[2023-11-18 08:00] VITALS: BP 101/64; PULSE 103; RESP 20; TEMP 97.7
[2023-11-18 08:27] LABS: HEMATOCRIT. 30.2 % (36.0-48.0); HEMOGLOBIN. 9.9 g/dL (12.0-16.0); MEAN CORPUSCULAR HEMOGLOBIN 29.5 pg (28.0-32.0); MEAN CORPUSCULAR HGB CONC 32.8 g/dL (31.0-37.0); MEAN CORPUSCULAR VOLUME 89.9 fL (81.0-99.0); MEAN PLATELET VOLUME 8.5 fl (7.4-10.4); PLATELET 499 x1000/uL (130-400); RED BLOOD CELL COUNT 3.36 mill/uL (4.2-5.4); RED CELL DISTRIBUTION WIDTH 15.7 % (11.6-14.6); WHITE BLOOD COUNT 16.7 x1000/uL (4.5-11.0)
[2023-11-18 08:28] LABS: DIFFERENTIAL COMMENT 1
[2023-11-18 08:29] LABS: CHLORIDE 118 mEq/L (98-107); POTASSIUM 3.3 mEq/L (3.5-5.1); SODIUM 144 mEq/L (136-145)
[2023-11-18 08:30] LABS: CALCIUM 8.6 mg/dL (8.7-10.4); CARBON DIOXIDE 18 mEq/L (21-32)
[2023-11-18 08:34] LABS: CREATININE 0.5 mg/dL (0.6-1.0)
[2023-11-18 08:35] LABS: GLUCOSE 67 mg/dL (70-105); UREA NITROGEN BLOOD 5 mg/dL (9-23)
[2023-11-18 08:37] LABS: PHOSPHORUS 3.6 mg/dL (2.5-4.9)
[2023-11-18] MEDS: POTASSIUM CHLORIDE 20MEQ/PACKET PO SCH (10:21)
[2023-11-18 12:00] VITALS: BP 112/69; PULSE 106; RESP 21; TEMP 97.4
[2023-11-18 16:00] VITALS: BP 108/70; PULSE 104; RESP 21; TEMP 97.4
[2023-11-18 16:46] LABS: PLATELET ESTIMATE SLIGHTLY INCREASED
[2023-11-18 20:00] VITALS: BP 139/93; PULSE 96; RESP 18; TEMP 99
[2023-11-18] MEDS: SULFAMETHOXAZOLE/TRIMETHOPRIM 800/160MG TABLET PO SCH (21:14)
[2023-11-18] MEDS: METRONIDAZOLE 500MG TABLET PO SCH (21:14)
[2023-11-19] VITALS: BP 139/93; PULSE 100; RESP 18; TEMP 97.9
[2023-11-19 04:00] VITALS: BP 115/81; PULSE 100; RESP 18; TEMP 97.9
[2023-11-19 07:54] LABS: CARBON DIOXIDE 19 mEq/L (21-32); CHLORIDE 116 mEq/L (98-107); POTASSIUM 3.5 mEq/L (3.5-5.1); SODIUM 142 mEq/L (136-145)
[2023-11-19 07:55] LABS: CALCIUM 8.2 mg/dL (8.7-10.4)
[2023-11-19 08:00] VITALS: BP 117/78; PULSE 110; RESP 18; TEMP 98.2
[2023-11-19 08:00] LABS: CREATININE 0.5 mg/dL (0.6-1.0); GLUCOSE 52 mg/dL (70-105); UREA NITROGEN BLOOD 6 mg/dL (9-23)
[2023-11-19 08:02] LABS: PHOSPHORUS 3.5 mg/dL (2.5-4.9)
[2023-11-19 08:25] LABS: HEMATOCRIT. 27.1 % (36.0-48.0); MEAN CORPUSCULAR HEMOGLOBIN 30.2 pg (28.0-32.0); MEAN CORPUSCULAR HGB CONC 33.3 g/dL (31.0-37.0); MEAN CORPUSCULAR VOLUME 90.5 fL (81.0-99.0); MEAN PLATELET VOLUME 8.8 fl (7.4-10.4); PLATELET 495 x1000/uL (130-400); RED CELL DISTRIBUTION WIDTH 15.3 % (11.6-14.6)
[2023-11-19 08:48] LABS: DIFFERENTIAL COMMENT 1
[2023-11-19 12:00] VITALS: BP 129/86; PULSE 92; RESP 18; TEMP 98
[2023-11-19] MEDS: POTASSIUM CHLORIDE 20MEQ/PACKET PO NR (12:20)
[2023-11-19] MEDS: MAGNESIUM 2 G PREMIX 50 ML IV NR (14:00)
[2023-11-19 16:00] VITALS: BP 137/92; PULSE 90; RESP 18; TEMP 98.2
[2023-11-19 16:08] LABS: PLATELET ESTIMATE INCREASED
[2023-11-19 20:00] VITALS: BP 122/83; PULSE 95; RESP 20; TEMP 97.7
[2023-11-20] VITALS: BP 123/75; PULSE 92; RESP 20; TEMP 97.5
[2023-11-20 04:00] VITALS: BP 132/88; PULSE 95; RESP 20; TEMP 97.5
[2023-11-20 08:00] VITALS: BP 124/89; PULSE 52; RESP 18; TEMP 97
[2023-11-20] MEDS ORDERED: METR-167 PO (10:25)
[2023-11-20] MEDS ORDERED: TOPUD PO (10:25)
[2023-11-20] MEDS ORDERED: VANC125C5 PO (10:25)
[2023-11-20] MEDS ORDERED: OMEP40CA20 PO (10:25)
[2023-11-20] MEDS ORDERED: SULF1TAB44 PO (10:25)
[2023-11-20 10:54] VITALS: BP 124/89; PULSE 52; TEMP 97; O2SAT 97
[2023-11-20] MEDS ORDERED: FLUC100T PO (11:47)
[2023-11-20 12:00] VITALS: BP 121/79; PULSE 52; RESP 18; TEMP 97.4
== END 2023-11-20 12:33 | disposition home health service (06) | DRG 220 ==
LOC: ER 18:26 → EDBEDREQ 20:54 → EDBEDREQTM 20:54 → ER 11-07 09:42 → EDBEDREQSVC 11-07 10:48 → CVICU 11-07 13:17 → 7WST 11-10 17:14 → 6EST 11-14 14:54
PROVIDERS: ADMIT Internal Medicine; ATTEND Internal Medicine
PROC: 0DU607Z Supplement Stomach with Autologous Tissue Substitute, Open Approach (ICD-10-PCS; principal; 2023-11-07)
PROC: 0DQ60ZZ Repair Stomach, Open Approach (ICD-10-PCS; 2023-11-07)
PROC: 05HY33Z Insertion of Infusion Device into Upper Vein, Percutaneous Approach (ICD-10-PCS; 2023-11-07)
DX: K25.5 Chronic or unspecified gastric ulcer with perforation (principal); N17.0 Acute kidney failure with tubular necrosis; J96.01 Acute respiratory failure with hypoxia; K65.9 Peritonitis, unspecified; G93.41 Metabolic encephalopathy; E87.1 Hypo-osmolality and hyponatremia; B37.9 Candidiasis, unspecified; I10 Essential (primary) hypertension; D64.9 Anemia, unspecified; E16.2 Hypoglycemia, unspecified; G62.9 Polyneuropathy, unspecified; E83.51 Hypocalcemia; R07.89 Other chest pain; K21.9 Gastro-esophageal reflux disease without esophagitis; R13.10 Dysphagia, unspecified; Z82.49 Family history of ischemic heart disease and other diseases of the circulatory system; Z98.51 Tubal ligation status; Z79.899 Other long term (current) drug therapy
CPT/HCPCS: 36415; 36600; 71045; 74176; 76700; 80048; 80061; 80076; 82375; 82550; 82553; 82805; 82962; 83036; 83605; 83735; 84100; 84145; 84439; 84443; 84484; 85025; 85027; 87070; 87075; 87077; 87106; 87186; 92610; 93005; 93970; 94640; 97110; 97162; 97166; 97168; 97530; 97535; 99285; C1893; J1650; J1956; J2248; J2250; J2270; J2310; J2370; J2405; J2470; J2704; J3010; J3370; J3475; J3480; J3490; J7030; J7042; J7050; J7060; J7121; P9047; J0131

== ENCOUNTER 2023-12-30 15:48 | Emergency (ER) | payer OTHER ==
[~2023-12-30] VITALS: Ht 167.6 cm; Wt 73.0 kg
[~2023-12-30 15:48] MED LIST changes: +FLUC100T PO; -HYDR25SU37 RC; -IBUP-2028 MT; -IBUP-2029 PO; +METR-167 PO; +OMEP40CA20 PO; -ONDA4TAB11 PO; -ONDA4TAB50 MT; +SULF1TAB44 PO; -T3 PO; -TOPUD MT; +TOPUD PO; +VANC125C5 PO
[2023-12-30 16:03] VITALS: PULSE 55; RESP 19; O2SAT 88
[2023-12-30] MEDS ORDERED: CEFEPIME 2GM IN DEXT 5% 100ML IV ONE (16:15)
[2023-12-30] MEDS ORDERED: CEFEPIME 2GM/100ML 100 ML IV NR (16:30)
[2023-12-30 17:01] LABS: BG BASE EXCESS -18.3 mmol/L (-2.0-2.0); BG CARBOXYHEMOGLOBIN 0.7 % (0.5-1.5); BG DEOXYHEMOGLOBIN 1.4 % (0.0-5.0); BG FRACTION INSPIRED OXYGEN 100; BG HCO3 ACT 11.4 mmol/L (22.0-26.0); BG METHEMOGLOBIN 0.3 % (0.0-1.5); BG OXYGEN SATURATION 98.6 % (92.0-98.5); BG OXYHEMOGLOBIN 97.6 % (94.0-97.0); BG PCO2 42.5 mmHg (35.0-45.0); BG PEEP (cmH2O) 0 cmH2O; BG PH 7.047 (7.350-7.450); BG PO2 167.3 mmHg (75.0-100.0); BG SAMPLE SITE RIGHT RADIAL; BG TOTAL HEMOGLOBIN 11.1 g/dL (12.0-18.0); BG VENT MODE VENT - AC/VC
[2023-12-30 17:09] VITALS: BP 97/74
[2023-12-30] MEDS: NOREPINEPHRINE 8MG/250ML PMX 250 ML IV ONE (17:09)
[2023-12-30] MEDS: SODIUM CHLORIDE 0.9% 1,000 ML IV ONE (17:11)
[2023-12-30] MEDS ORDERED: MIDAZOLAM 100MG/100ML PMX 100 ML IV PRN (17:45)
[2023-12-30] MEDS ORDERED: MIDAZOLAM HCL 2 MG/2 ML VIAL IV ONE (17:45)
[2023-12-30] MEDS ORDERED: ACETAMINOPHEN 650MG/20.3ML UDC NG PRN (17:45)
[2023-12-30] MEDS ORDERED: EPINEPHRINE 5 MG in SODIUM CHLORIDE 0.9% 245 ML IV PRN ×2 (17:45→18:00)
[2023-12-30] MEDS ORDERED: VASOPRESSIN 20 UNIT in SODIUM CHLORIDE 0.9% 99 ML IV PRN ×2 (17:45→18:00)
[2023-12-30] MEDS ORDERED: ACETAMINOPHEN 650MG SUPP PR PRN (17:45)
[2023-12-30 18:07] LABS: CHLORIDE 107 mEq/L (98-107); SODIUM 135 mEq/L (136-145)
[2023-12-30 18:08] LABS: CARBON DIOXIDE 12 mEq/L (21-32)
[2023-12-30 18:09] LABS: CALCIUM 9.6 mg/dL (8.7-10.4)
[2023-12-30 18:13] LABS: GLUCOSE 111 mg/dL (70-105)
[2023-12-30 18:14] LABS: UREA NITROGEN BLOOD 12 mg/dL (9-23)
[2023-12-30] MEDS ORDERED: AMIODARONE 150MG/100ML 100 ML IV ONE (18:15)
[2023-12-30 18:16] LABS: CREATININE 1.3 mg/dL (0.6-1.0); PHOSPHORUS 7.5 mg/dL (2.5-4.9)
[2023-12-30 18:19] LABS: ETHANOL BLOOD < 10 mg/dL (<10); TROPONIN I HIGH SENSITIVITY 4646 ng/L (3.0-34)
[2023-12-30 18:52] LABS: BASOPHILS % 0.4 % (0.0-2.0); EOSINOPHILS % 0.7 % (0.0-5.0); HEMOGLOBIN. 11.1 g/dL (12.0-16.0); LYMPHOCYTES % 29.3 % (20.0-50.0); MEAN CORPUSCULAR HEMOGLOBIN 28.5 pg (28.0-32.0); MEAN CORPUSCULAR HGB CONC 28.4 g/dL (31.0-37.0); MEAN CORPUSCULAR VOLUME 100.2 fL (81.0-99.0); MONOCYTES % 1.6 % (2.0-8.0); RED BLOOD CELL COUNT 3.89 mill/uL (4.2-5.4); RED CELL DISTRIBUTION WIDTH 18.6 % (11.6-14.6); WHITE BLOOD COUNT 14.1 x1000/uL (4.5-11.0)
[2023-12-30 18:53] LABS: DIFFERENTIAL COMMENT 1
[2023-12-30 19:13] LABS: MEAN PLATELET VOLUME 8.5 fl (7.4-10.4); PLATELET 112 x1000/uL (130-400)
[2023-12-30] MEDS ORDERED: VANCOMYCIN 1.5GM/250ML IV NR (23:00)
== END 2023-12-30 18:40 ==
LOC: ER 15:48 → EDBEDREQTM 18:16 → EDBEDREQ 18:16 → ER 18:40
DX: I46.9 Cardiac arrest, cause unspecified (principal); I49.01 Ventricular fibrillation; N17.9 Acute kidney failure, unspecified; I21.3 ST elevation (STEMI) myocardial infarction of unspecified site; Z88.0 Allergy status to penicillin; Z79.899 Other long term (current) drug therapy
CPT/HCPCS: 80048; 80320; 82962; 83735; 84100; 85025; 86850; 86900; 86901; 87040; 84484; 36415; 71045; 82805; 82375; 93005; 94003; 96365; 99291; 36600; J3490; J7030; Z7610 ×4; J0692; G0480